=== PATIENT | male | born 1940 | race Caucasian/White ===

== ENCOUNTER 2017-01-16 13:59 | Day surgery (SDC) | payer MEDICARE ==
[2017-01-13 12:47] LABS: BASOPHILS # (AUTO) 0.1 X10'3 (0-0.2); BASOPHILS % (AUTO) 1.8 % (0-1); EOSINOPHILS # (AUTO) 0.2 X10'3 (0-0.9); EOSINOPHILS % (AUTO) 2.4 % (0-6); HEMATOCRIT 41.3 % (42.0-52.0); HEMOGLOBIN 14.4 g/dl (14.0-17.9); LYMPHOCYTES # (AUTO) 1.2 X10'3 (1.1-4.8); LYMPHOCYTES % (AUTO) 15.6 % (21-51); MEAN CORPUSCULAR HEMOGLOBIN 30.5 PG (27.0-31.0); MEAN CORPUSCULAR HGB CONC 34.9 % (33.0-36.5); MEAN CORPUSCULAR VOLUME 87.5 FL (78-98); MEAN PLATELET VOLUME 8.7 FL (7.4-10.4); MONOCYTES # (AUTO) 0.4 X10'3 (0-0.9); MONOCYTES % (AUTO) 5.4 % (2-12); NEUTROPHILS # (AUTO) 5.7 X10'3 (1.8-7.7); NEUTROPHILS % (AUTO) 74.8 % (42-75); PLATELET COUNT 203 X10'3 (140-440); RED BLOOD COUNT 4.72 X10'6 (4.70-6.10); RED CELL DISTRIBUTION WIDTH 12.7 % (11.5-14.5); WHITE BLOOD COUNT 7.6 X10'3 (4.5-11.0)
[2017-01-13 12:57] LABS: INR 1.3 INR; PARTIAL THROMBOPLASTIN TIME 29 SECONDS (22-32); PROTHROMBIN TIME 13.1 SECONDS (9.0-12.0)
[2017-01-13 13:00] LABS: ALBUMIN 3.6 G/DL (3.4-5.0); ANION GAP 4 (8-16); BLOOD UREA NITROGEN 22 MG/DL (7-18); BUN/CREATININE RATIO 15.9 (5.4-32.0); CHLORIDE 104 MMOL/L (99-107); CREATININE 1.38 MG/DL (0.60-1.10); GLUCOSE 123 MG/DL (70-104); POTASSIUM 4.5 MMOL/L (3.5-5.1); SODIUM 141 MMOL/L (135-145); TOTAL CARBON DIOXIDE 32.8 MMOL/L (24-32); eGFR 50 ML/MIN
[2017-01-16] VITALS (9 sets, daily range): BP systolic 114–129; BP diastolic 57–81
[~2017-01-16] VITALS: Ht 180.3 cm; Wt 100.4 kg
[~2017-01-16 13:59] MED LIST: ARIP2TAB11 PO; BUSP5TAB26 PO; CYAN100T12 PO; DABI150C PO; FLUV25TA3 PO; FOLI0.4T2 PO; FURO40TA4 PO; HYDR-3686 PO; IBUP-2264 PO; MIRT15TA8 PO; NITR0.4T SL; POTA8TAB3 PO; TRAZ-143 PO; VALS80TA26 PO
[2017-01-16] MEDS ORDERED: LORazepam 0.5 MG tablet PO PRN (14:25)
[2017-01-16] MEDS ORDERED: normal saline 1000ml 1,000 ML IV SCH (14:25)
[2017-01-16] MEDS ORDERED: diphenhydrAMINE 25mg capsule PO PRN (14:25)
[2017-01-16] MEDS ORDERED: BUSP5TAB3 PO (15:05)
[2017-01-16] MEDS ORDERED: MIRT15TA PO (15:05)
[2017-01-16] MEDS ORDERED: VALS80TA2 PO (15:05)
[2017-01-16] MEDS ORDERED: ARIP5TAB4 PO (15:05)
[2017-01-16] MEDS ORDERED: FLUV50TA3 PO (15:05)
[2017-01-16] MEDS ORDERED: TRAZ-143 PO (15:05)
[2017-01-16] MEDS ORDERED: POTA10TA36 PO (15:05)
[2017-01-16] MEDS ORDERED: FLUO20CA39 PO (15:05)
[2017-01-16] MEDS ORDERED: iohexol 350MG/ML 100ml bottle IV ONE (16:08)
[2017-01-16] MEDS ORDERED: LIDOcaine 1%/PF (10mg/ml) 5ml vial ONE (16:08)
[2017-01-16] MEDS ORDERED: midazolam 2 mg/2 ml injection ONE (16:33)
[2017-01-16] MEDS ORDERED: fentaNYL/PF 50MCG/1 ML 2ML syringe ONE (16:33)
[2017-01-16] MEDS ORDERED: HYDROcodone/acetaminophen 5mg/325mg tablet PO PRN (18:35)
[2017-01-16] MEDS ORDERED: proCHLORperazine 10 MG/2 ml inj IV PRN (18:35)
[2017-01-16] MEDS ORDERED: HYDROcodone/acetaminophen 10/325mg tab PO PRN (18:35)
[2017-01-16] MEDS ORDERED: OXAZEpam 15mg capsule PO PRN (18:35)
[2017-01-16] MEDS ORDERED: ondansetron/PF 4mg/2ml inj IV PRN (18:35)
== END 2017-01-16 20:32 | disposition home or self-care (01) ==
LOC: SSTAY O 13:59
PROVIDERS: ATTEND Internal Medicine Interventional Cardiology
DX: I25.10 Atherosclerotic heart disease of native coronary artery without angina pectoris (principal); I48.2 Chronic atrial fibrillation; E78.4 Other hyperlipidemia; I08.0 Rheumatic disorders of both mitral and aortic valves; N18.9 Chronic kidney disease, unspecified; I50.43 Acute on chronic combined systolic (congestive) and diastolic (congestive) heart failure; Z95.5 Presence of coronary angioplasty implant and graft; Z88.2 Allergy status to sulfonamides; Z95.1 Presence of aortocoronary bypass graft; Z79.899 Other long term (current) drug therapy; Z79.01 Long term (current) use of anticoagulants
CPT/HCPCS: 36415; 80048; 85025; 85610; 85730; 93312; 93325; 93461; 99152; 99153; A6257; C1760; C1769; C1894; J2001; J2250; J7030; Q0163; Q9967; A4620; J3010

== ENCOUNTER 2017-10-10 11:28 | Emergency (ER) | payer MEDICARE ==
[~2017-10-10] VITALS: Ht 180.3 cm; Wt 91.0 kg
[~2017-10-10 11:28] MED LIST changes: -ARIP2TAB11 PO; +ARIP5TAB4 PO; -BUSP5TAB26 PO; +BUSP5TAB3 PO; -CYAN100T12 PO; +FLUO20CA39 PO; -FLUV25TA3 PO; +FLUV50TA3 PO; -FOLI0.4T2 PO; -HYDR-3686 PO; -IBUP-2264 PO; +MIRT15TA PO; -MIRT15TA8 PO; -NITR0.4T SL; +POTA10TA36 PO; -POTA8TAB3 PO; -TRAZ-143 PO; +TRAZ-218 PO; +VALS80TA2 PO; -VALS80TA26 PO
[2017-10-10] MEDS ORDERED: LORazepam 1 MG tablet PO ONE ×2 (12:20→14:25)
[2017-10-10 12:29] LABS: BASOPHILS % (AUTO) 0.2 % (0-1); EOSINOPHILS # (AUTO) 0.1 X10'3 (0-0.9); EOSINOPHILS % (AUTO) 1.4 % (0-6); HEMATOCRIT 40.8 % (42.0-52.0); LYMPHOCYTES # (AUTO) 0.8 X10'3 (1.1-4.8); LYMPHOCYTES % (AUTO) 8.2 % (21-51); MEAN CORPUSCULAR HEMOGLOBIN 30.5 PG (27.0-31.0); MEAN CORPUSCULAR HGB CONC 34.4 % (33.0-36.5); MEAN CORPUSCULAR VOLUME 88.7 FL (78-98); MEAN PLATELET VOLUME 8.3 FL (7.4-10.4); MONOCYTES # (AUTO) 0.5 X10'3 (0-0.9); MONOCYTES % (AUTO) 5.3 % (2-12); NEUTROPHILS # (AUTO) 7.9 X10'3 (1.8-7.7); NEUTROPHILS % (AUTO) 84.9 % (42-75); PLATELET COUNT 223 X10'3 (140-440); RED BLOOD COUNT 4.59 X10'6 (4.70-6.10); RED CELL DISTRIBUTION WIDTH 14.9 % (11.5-14.5); WHITE BLOOD COUNT 9.3 X10'3 (4.5-11.0)
[2017-10-10 12:41] LABS: CLARITY,URINE CLOUDY (Clear); COLOR,URINE YELLOW (Yellow); GLUCOSE, URINE NEGATIVE (Neg); KETONES,URINE NEGATIVE (Neg); LEUKOCYTE ESTERASE ,URINE NEGATIVE (Neg); NITRITES, URINE NEGATIVE (Neg); OCCULT BLOOD,URINE NEGATIVE (Neg); PROTEIN,URINE NEGATIVE (Neg)
[2017-10-10 12:42] LABS: ALANINE AMINOTRANSFERASE 22 U/L (12-78); ALBUMIN 3.4 G/DL (3.4-5.0); ALBUMIN/GLOBULIN RATIO 0.8 (1.1-1.5); ALKALINE PHOSPHATASE 101 IU/L (46-116); ANION GAP 5 (8-16); ASPARTATE AMINO TRANSFERASE 11 U/L (10-37); BILIRUBIN,TOTAL 1.5 MG/DL (0.1-1.0); BLOOD UREA NITROGEN 13 MG/DL (7-18); BUN/CREATININE RATIO 10.8 (5.4-32.0); CALCIUM 9.4 MG/DL (8.5-10.1); CHLORIDE 103 MMOL/L (99-107); GLUCOSE 120 MG/DL (70-104); POTASSIUM 4.7 MMOL/L (3.5-5.1); SODIUM 138 MMOL/L (135-145); TOTAL CARBON DIOXIDE 29.8 MMOL/L (24-32); TOTAL PROTEIN 7.7 G/DL (6.4-8.2); eGFR 59 ML/MIN
[2017-10-10 12:47] LABS: UA COLLECTION TYPE CLN CATCH MIDSTREAM
[2017-10-10 12:52] LABS: ETHANOL < 0.010 GM/DL (0.0-0.010)
[2017-10-10 12:55] LABS: URINE AMPHETAMINE SCREEN NEGATIVE (Neg); URINE BARBITUATE SCREEN NEGATIVE (Neg); URINE BENZODIAZEPINES SCREEN NEGATIVE (Neg); URINE CANNABINOID SCREEN NEGATIVE (Neg); URINE COCAINE SCREEN NEGATIVE (Neg); URINE METHADONE SCREEN NEGATIVE (Neg); URINE OPIATE SCREEN NEGATIVE (Neg); URINE PHENCYCLIDINE SCREEN NEGATIVE (Neg)
[2017-10-10 13:01] LABS: RBC,URINE NONE SEEN /HPF (0-2); WBC,URINE 0-4 /HPF (0-4)
[2017-10-10 13:02] LABS: AMORPHOUS PHOSPHATES 4+; BACTERIA,URINE NONE SEEN /HPF (Neg); MUCUS STRANDS MODERATE /LPF (Neg); SQUAMOUS EPITHELIAL CELL,UR FEW /LPF (FEW)
[2017-10-10 14:32] VITALS: BP 125/77
== END 2017-10-10 14:36 ==
LOC: ER 11:29
DX: F32.9 Major depressive disorder, single episode, unspecified (principal); I48.91 Unspecified atrial fibrillation; I25.10 Atherosclerotic heart disease of native coronary artery without angina pectoris; I10 Essential (primary) hypertension; Z95.0 Presence of cardiac pacemaker; Z95.1 Presence of aortocoronary bypass graft; Z88.2 Allergy status to sulfonamides; Z88.8 Allergy status to other drugs, medicaments and biological substances
CPT/HCPCS: 36415; 70450; 80053; 80305; 80320; 81001; 84443; 85025; 99285

== ENCOUNTER 2017-10-10 14:15 | Inpatient (IN) | payer MEDICARE ==
[~2017-10-10] VITALS: Ht 180.3 cm; Wt 90.6 kg
[2017-10-10] MEDS ORDERED: acetaminophen 325mg tablet PO PRN ×2 (15:25)
[2017-10-10] MEDS ORDERED: magnesium hydroxide 30ml (MOM) UD suspension PO PRN (15:25)
[2017-10-10] MEDS ORDERED: mag hydrox/Alum hydrox/simeth 30ml oral suspension PO PRN (15:25)
[2017-10-10] MEDS ORDERED: hydrOXYzine 25 MG tablet PO PRN (16:35)
[2017-10-10 16:40] VITALS: BP 122/74
[2017-10-10 19:38] VITALS: BP 100/63
[2017-10-10] MEDS: fluvoxamine 25 MG tablet PO SCH (20:33)
[2017-10-10] MEDS: busPIRone 15mg tablet PO SCH (20:34)
[2017-10-10] MEDS: lithium carbonate 150mg capsule PO SCH (20:34)
[2017-10-10] MEDS: dabigatran 150mg capsule PO SCH (20:34)
[2017-10-10] MEDS ORDERED: traZODone 50mg tablet PO SCH (21:00)
[2017-10-11 07:24] LABS: CHOLESTEROL 139 MG/DL (0-200); HDL CHOLESTEROL 47 MG/DL (35-60); LDL CHOLESTEROL 87 MG/DL (50-100); TRIGLYCERIDES 40 MG/DL (20-135)
[2017-10-11] MEDS ORDERED: losartan 50mg tablet PO SCH (08:00)
[2017-10-11] MEDS ORDERED: PARoxetine 10mg tablet PO SCH (08:00)
[2017-10-11] MEDS ORDERED: furosemide 40mg tablet PO SCH (08:00)
[2017-10-11] MEDS ORDERED: potassium Cl 20 mEq SR tablet PO SCH (08:00)
[2017-10-11] MEDS ORDERED: aripiprazole 5mg tablet PO SCH (08:00)
[2017-10-11] MEDS: fluvoxamine 25 MG tablet PO SCH (08:18)
[2017-10-11] MEDS: busPIRone 15mg tablet PO SCH (08:19)
[2017-10-11] MEDS: dabigatran 150mg capsule PO SCH (08:19)
[2017-10-11] MEDS: lithium carbonate 150mg capsule PO SCH (08:20)
[2017-10-11 08:52] VITALS: BP 112/69
== END 2017-10-11 11:10 | disposition left against medical advice (07) | DRG 880 ==
LOC: ADULT MH 14:15
PROVIDERS: ADMIT Psychiatry & Neurology Psychiatry; ATTEND Psychiatry & Neurology Psychiatry
DX: F41.9 Anxiety disorder, unspecified (principal); F32.9 Major depressive disorder, single episode, unspecified; Z88.8 Allergy status to other drugs, medicaments and biological substances; Z88.2 Allergy status to sulfonamides
CPT/HCPCS: 36415; 80061; 83036; Q0177

== ENCOUNTER 2020-06-13 19:08 | Emergency (ER) | payer MEDICARE, SELFPAY ==
[~2020-06-13] VITALS: Ht 177.8 cm; Wt 88.3 kg
[~2020-06-13 19:08] MED LIST changes: -ARIP5TAB4 PO; -BUSP5TAB3 PO; +DULO-31 PO; -FLUO20CA39 PO; +FURO-149 PO; -FURO40TA4 PO; -MIRT15TA PO; -POTA10TA36 PO; -TRAZ-218 PO; +TRAZ-251 PO; -VALS80TA2 PO
--- NOTE | 2020-06-13 21:00 | NUR ---
The patient is a 79 year old male who was brought in by his for a mental health evaluation. THe patient is irritable. He reportedly has had high anxiety and will not allow his to leave the home without her. He is also stating to her "I don't want to " He reportedly has been having intrusive thoughts that he should kill himself and believes those thoughts are coming from the devil and is frequently asking his to pray for him. He denies that he wants to and he never has had a suicide attempt. He is alert and oriented. He denies that he is having A/V hallucinations.
[2020-06-13 21:13] LABS: BASOPHILS # (AUTO) 0.1 X10'3 (0-0.2); BASOPHILS % (AUTO) 0.9 % (0-1); EOSINOPHILS # (AUTO) 0.1 X10'3 (0-0.9); EOSINOPHILS % (AUTO) 1.3 % (0-6); HEMATOCRIT 39.6 % (42.0-52.0); HEMOGLOBIN 13.8 g/dl (14.0-17.9); LYMPHOCYTES # (AUTO) 0.9 X10'3 (1.1-4.8); MEAN CORPUSCULAR HEMOGLOBIN 32.6 PG (27.0-31.0); MEAN CORPUSCULAR HGB CONC 34.8 g/dL (33.0-36.5); MEAN CORPUSCULAR VOLUME 93.5 FL (78-98); MEAN PLATELET VOLUME 9.2 FL (7.4-10.4); MONOCYTES # (AUTO) 0.6 X10'3 (0-0.9); MONOCYTES % (AUTO) 7.2 % (2-12); NEUTROPHILS # (AUTO) 7.1 X10'3 (1.8-7.7); NEUTROPHILS % (AUTO) 80.6 % (42-75); PLATELET COUNT 176 X10'3 (140-440); RED BLOOD COUNT 4.24 X10'6 (4.70-6.10); RED CELL DISTRIBUTION WIDTH 14.6 % (11.5-14.5); WHITE BLOOD COUNT 8.8 X10'3 (4.5-11.0)
[2020-06-13 21:36] LABS: ALANINE AMINOTRANSFERASE 18 U/L (12-78); ALBUMIN 3.7 G/DL (3.4-5.0); ALBUMIN/GLOBULIN RATIO 1.1 (1.1-1.5); ALKALINE PHOSPHATASE 65 IU/L (46-116); ANION GAP 10 (8-16); ASPARTATE AMINO TRANSFERASE 15 U/L (10-37); BLOOD UREA NITROGEN 14 MG/DL (7-18); BUN/CREATININE RATIO 15.1 (5.4-32.0); CALCIUM 8.9 MG/DL (8.5-10.1); CHLORIDE 102 MMOL/L (99-107); CREATININE 0.93 MG/DL (0.60-1.10); ETHANOL < 0.010 GM/DL (0.0-0.010); GLUCOSE 108 MG/DL (70-104); POTASSIUM 4.4 MMOL/L (3.5-5.1); SODIUM 137 MMOL/L (135-145); TOTAL CARBON DIOXIDE 25.2 MMOL/L (24-32); TOTAL PROTEIN 7.2 G/DL (6.4-8.2); eGFR 79 ML/MIN
[2020-06-13 21:39] LABS: ACETAMINOPHEN < 2.0 UG/ML (10-30)
[2020-06-13] MEDS ORDERED: SACU1TAB PO (21:57)
[2020-06-13] MEDS ORDERED: SPIR25TA5 PO (21:57)
[2020-06-13] MEDS ORDERED: FURO40TA4 PO ×2 (21:57)
[2020-06-13] MEDS ORDERED: BUSP5TAB3 PO (21:57)
[2020-06-13] MEDS ORDERED: TRAZ-256 PO (21:57)
[2020-06-13] MEDS ORDERED: METO25TA6 (21:57)
[2020-06-13] MEDS ORDERED: POTA10TA19 PO (21:57)
[2020-06-13] MEDS ORDERED: LOSA25TA96 PO (21:57)
[2020-06-13] MEDS ORDERED: METO-395 PO (22:04)
[2020-06-13] MEDS ORDERED: DIGO125T PO (22:04)
[2020-06-13] MEDS ORDERED: [UNRECOGNIZED DRUG - OTHER] PO (22:08)
[2020-06-13 22:15] LABS: URINE AMPHETAMINE SCREEN NEGATIVE (Neg); URINE BARBITUATE SCREEN NEGATIVE (Neg); URINE BENZODIAZEPINES SCREEN NEGATIVE (Neg); URINE CANNABINOID SCREEN NEGATIVE (Neg); URINE COCAINE SCREEN NEGATIVE (Neg); URINE METHADONE SCREEN NEGATIVE (Neg); URINE OPIATE SCREEN NEGATIVE (Neg); URINE PHENCYCLIDINE SCREEN NEGATIVE (Neg)
[2020-06-13] MEDS ORDERED: METO-411 PO (22:27)
[2020-06-13] MEDS ORDERED: FLUV25TA3 PO (22:34)
--- NOTE | 2020-06-13 22:57 | NUR ---
The patient is up to the bathroom asking if every thing was Okay and was reassured that it was.
--- NOTE | 2020-06-13 22:58 | NUR ---
, [place] [facility] lewyy=[phone] and cell kmtvg=[phone]
[2020-06-14] MEDS ORDERED: traZODone 50mg tablet PO SCH (00:15)
--- NOTE | 2020-06-14 00:32 | NUR ---
The patient appears to have been sleeping. He approached the nursing station and complained of not being able to sleep and requested sleep med and trazodone given.
--- NOTE | 2020-06-14 02:08 | NUR ---
The patient appears to be sleeping
--- NOTE | 2020-06-14 03:57 | NUR ---
The patient appears to be sleeping
--- NOTE | 2020-06-14 05:20 | NUR ---
packet sent to [facility]
[2020-06-14 05:31] VITALS: BP_DIAS 75
--- NOTE | 2020-06-14 06:00 | NUR ---
The patient has slept poorly during the night with frequent awakenings. He is now complaining of high anxiety and having the thoughts that brought him in. MD made aware of high anxiety.
[2020-06-14] MEDS ORDERED: LORazepam 0.5 MG tablet PO ONE (06:05)
--- NOTE | 2020-06-14 06:54 | NUR ---
Patient resting on left side with eyes closed.
[2020-06-14] MEDS ORDERED: hydrOXYzine 25 MG tablet PO ONE (07:30)
--- NOTE | 2020-06-14 07:30 | NUR ---
Pt c/o still having obsessive thoughts and unable to rest. Having dreams of suicide, states the ativan "did nothing". Discussed with Dr Herron and rec order for Atarax.
[2020-06-14 07:50] VITALS: BP_SYST 135
[2020-06-14] MEDS ORDERED: losartan 25mg tablet PO SCH (08:00)
[2020-06-14] MEDS ORDERED: busPIRone 5mg tablet PO SCH (08:00)
[2020-06-14] MEDS ORDERED: fluvoxamine 25 MG tablet PO SCH (08:00)
[2020-06-14] MEDS ORDERED: digoxin 250mcg (0.25mg) tablet PO SCH (08:00)
[2020-06-14] MEDS ORDERED: potassium Cl 20 mEq SR tablet PO SCH (08:00)
[2020-06-14] MEDS ORDERED: furosemide 40mg tablet PO SCH (08:00)
[2020-06-14] MEDS ORDERED: metoprolol succinate 25mg (24-HOUR) SR. Tablet PO SCH (08:00)
[2020-06-14] MEDS ORDERED: spironolactone 25 MG tablet PO SCH (08:00)
[2020-06-14] MEDS ORDERED: sacubitril/valsartan 24mg-26mg tablet PO SCH (08:00)
--- NOTE | 2020-06-14 08:08 | NUR ---
PT ON PHONE WITH FAMILY, FAMILY ASKS "IS ANYONE THERE PRAYING FOR YOU?". BRITANY PATEL CONTACTED AND EN ROUTE TO SEE PT.
--- NOTE | 2020-06-14 08:35 | NUR ---
On phone with , asked her to come in and see him and help him. Communication Coordinator arrived to talk with patient.
--- NOTE | 2020-06-14 10:29 | NUR ---
Patient being evaluated by Stanley from [facility]
== END 2020-06-14 11:45 | disposition home or self-care (01) ==
LOC: ER 19:09
DX: R45.851 Suicidal ideations (principal); F41.9 Anxiety disorder, unspecified; I48.91 Unspecified atrial fibrillation; I25.10 Atherosclerotic heart disease of native coronary artery without angina pectoris; I10 Essential (primary) hypertension; G47.30 Sleep apnea, unspecified; Z95.1 Presence of aortocoronary bypass graft; Z95.0 Presence of cardiac pacemaker; Z88.8 Allergy status to other drugs, medicaments and biological substances; Z88.2 Allergy status to sulfonamides; Z79.899 Other long term (current) drug therapy
CPT/HCPCS: 36415; 80053; 80305; 80320; 80329; 85025; 99285; Q0177

== ENCOUNTER 2021-10-02 17:08 | Inpatient (IN) | payer MEDICARE ==
[~2021-10-02] VITALS: Ht 182.9 cm; Wt 88.7 kg
[~2021-10-02 17:08] MED LIST changes: +BUSP5TAB3 PO; -DABI150C PO; +DIGO125T PO; -DULO-31 PO; +FLUV25TA14 PO; -FLUV50TA3 PO; -FURO-149 PO; +FURO40TA4 PO; +LOSA25TA96 PO; +METO-411 PO; +POTA-192 PO; +SACU1TAB PO; +SPIR25TA5 PO; -TRAZ-251 PO; +TRAZ-256 PO
--- NOTE | 2021-10-02 17:18 | NUR ---
EKG 1713 LM
[2021-10-02 17:55] LABS: BASOPHILS # (AUTO) 0.1 X10'3 (0-0.2); BASOPHILS % (AUTO) 0.6 % (0-1); EOSINOPHILS % (AUTO) 0.2 % (0-6); HEMATOCRIT 38.7 % (42.0-52.0); HEMOGLOBIN 13.6 g/dl (14.0-17.9); LYMPHOCYTES # (AUTO) 0.7 X10'3 (1.1-4.8); LYMPHOCYTES % (AUTO) 7.4 % (21-51); MEAN CORPUSCULAR HEMOGLOBIN 33.1 PG (27.0-31.0); MEAN CORPUSCULAR HGB CONC 35.3 g/dL (33.0-36.5); MEAN CORPUSCULAR VOLUME 93.8 FL (78-98); MONOCYTES # (AUTO) 0.8 X10'3 (0-0.9); MONOCYTES % (AUTO) 7.9 % (2-12); NEUTROPHILS % (AUTO) 83.9 % (42-75); PLATELET COUNT 167 X10'3 (140-440); RED BLOOD COUNT 4.12 X10'6 (4.70-6.10); RED CELL DISTRIBUTION WIDTH 13.5 % (11.5-14.5); WHITE BLOOD COUNT 9.6 X10'3 (4.5-11.0)
[2021-10-02 17:56] LABS: ALANINE AMINOTRANSFERASE 16 U/L (12-78); ALBUMIN 3.5 G/DL (3.4-5.0); ALBUMIN/GLOBULIN RATIO 0.8 (1.1-1.5); ALKALINE PHOSPHATASE 73 IU/L (46-116); ANION GAP 10 (8-16); ASPARTATE AMINO TRANSFERASE 22 U/L (10-37); BILIRUBIN,TOTAL 2.4 MG/DL (0.1-1.0); BLOOD UREA NITROGEN 17 MG/DL (7-18); CALCIUM 9.3 MG/DL (8.5-10.1); CHLORIDE 104 MMOL/L (99-107); CREATININE 1.42 MG/DL (0.60-1.10); GLUCOSE 133 MG/DL (70-104); POTASSIUM 5.1 MMOL/L (3.5-5.1); SODIUM 139 MMOL/L (135-145); TOTAL CARBON DIOXIDE 25.3 MMOL/L (24-32); eGFR 48 ML/MIN
[2021-10-02] MEDS ORDERED: aspirin 81mg tab.chew PO ONE (18:30)
[2021-10-02] MEDS ORDERED: nitroGLYCERIN 0.4mg/hour patch TD ONE (18:30)
[2021-10-02] MEDS ORDERED: temazepam 15mg capsule PO PRN (21:00)
[2021-10-02] MEDS ORDERED: HYDROcodone/acetaminophen 5mg/325mg tablet PO PRN (21:20)
[2021-10-02] MEDS ORDERED: ipratropium/albuterol 3ml nebule NEB PRN (21:20)
[2021-10-02] MEDS ORDERED: mag hydrox/Alum hydrox/simeth 30ml oral suspension PO PRN (21:20)
[2021-10-02] MEDS ORDERED: acetaminophen 650mg rectal suppository RC PRN (21:20)
[2021-10-02] MEDS ORDERED: diphenhydrAMINE 25mg capsule PO PRN (21:20)
[2021-10-02] MEDS ORDERED: magnesium hydroxide 30ml (MOM) UD suspension PO PRN (21:20)
[2021-10-02] MEDS ORDERED: morphine 2 MG/ML inj. syringe IV PRN ×2 (21:20)
[2021-10-02] MEDS ORDERED: ondansetron/PF 4mg/2ml inj IV PRN (21:20)
[2021-10-02] MEDS ORDERED: bisacodyl 10mg suppository rectal RC PRN (21:20)
[2021-10-02] MEDS ORDERED: acetaminophen 325mg tablet PO PRN ×2 (21:20)
[2021-10-02] MEDS ORDERED: diphenhydrAMINE 50 mg/ml inj IV PRN (21:20)
[2021-10-02] MEDS ORDERED: ondansetron 4mg rapidly disintigrating tab PO PRN (21:20)
[2021-10-02] MEDS ORDERED: normal saline 1000ml 1,000 ML IV SCH (21:20)
[2021-10-02 21:57] LABS: HEMOGLOBIN A1C 5.2 % (4.5-6.2)
[2021-10-02 22:05] LABS: APTT 34 SECONDS (22-32); D-DIMER 0.38 MG/L FEU (0-0.50)
[2021-10-02] MEDS ORDERED: traZODone 50mg tablet PO SCH (22:06)
[2021-10-03 00:01] LABS: CREATINE KINASE 83 U/L (39-308); LIPASE < 50 U/L (73-393); MAGNESIUM 2.1 MG/DL (1.5-2.4); PHOSPHORUS 2.9 MG/DL (2.3-4.5)
--- NOTE | 2021-10-03 00:58 | NUR ---
Patient in room ED 3. I have received report from Kelsie ED RN and had the opportunity to ask questions and assume patient care.
[2021-10-03 01:30] VITALS: BP 110/78
--- NOTE | 2021-10-03 01:39 | NUR ---
Pt arrived fr/the ED via gurney in no acute distress. Assisted to bed, oriented to room, surroundings, and POC. VSS.
[2021-10-03] MEDS ORDERED: EMPA10TA PO (01:53)
[2021-10-03] MEDS: heparin, porcine 5000 units/ml vial SQ SCH ×2 (02:00→07:07)
--- NOTE | 2021-10-03 06:44 | NUR ---
Patient in room PCU 3026. I have received report from REGINE Hope and had the opportunity to ask questions and assume patient care.
--- NOTE | 2021-10-03 07:00 | NUR ---
Problems reprioritized. Patient report given, questions answered & plan of care reviewed with Magdaleno WEINER.
[2021-10-03 07:14] VITALS: BP 113/74
[2021-10-03] MEDS ORDERED: pantoprazole 40mg Tablet.DR PO SCH (07:30)
[2021-10-03 07:31] LABS: ALANINE AMINOTRANSFERASE 14 U/L (12-78); ALBUMIN 3.1 G/DL (3.4-5.0); ALBUMIN/GLOBULIN RATIO 0.8 (1.1-1.5); ALKALINE PHOSPHATASE 61 IU/L (46-116); ANION GAP 15 (8-16); ASPARTATE AMINO TRANSFERASE 21 U/L (10-37); BILIRUBIN,TOTAL 1.9 MG/DL (0.1-1.0); BLOOD UREA NITROGEN 14 MG/DL (7-18); BUN/CREATININE RATIO 14.6 (5.4-32.0); CALCIUM 8.7 MG/DL (8.5-10.1); CHLORIDE 107 MMOL/L (99-107); CHOLESTEROL 134 MG/DL (0-200); CREATININE 0.96 MG/DL (0.60-1.10); GLUCOSE 109 MG/DL (70-104); HDL CHOLESTEROL 44 MG/DL (35-60); LDL CHOLESTEROL 82 MG/DL (50-100); POTASSIUM 3.6 MMOL/L (3.5-5.1); SODIUM 143 MMOL/L (135-145); TOTAL CARBON DIOXIDE 21.5 MMOL/L (24-32); TOTAL PROTEIN 6.8 G/DL (6.4-8.2); TRIGLYCERIDES 66 MG/DL (20-135); eGFR 76 ML/MIN
[2021-10-03 07:34] LABS: BASOPHILS % (AUTO) 0.6 % (0-1); EOSINOPHILS # (AUTO) 0.1 X10'3 (0-0.9); EOSINOPHILS % (AUTO) 0.9 % (0-6); HEMATOCRIT 35.8 % (42.0-52.0); HEMOGLOBIN 12.6 g/dl (14.0-17.9); LYMPHOCYTES # (AUTO) 0.7 X10'3 (1.1-4.8); LYMPHOCYTES % (AUTO) 9.7 % (21-51); MEAN CORPUSCULAR HEMOGLOBIN 32.9 PG (27.0-31.0); MEAN CORPUSCULAR HGB CONC 35.2 g/dL (33.0-36.5); MEAN CORPUSCULAR VOLUME 93.5 FL (78-98); MEAN PLATELET VOLUME 9.8 FL (7.4-10.4); MONOCYTES # (AUTO) 0.6 X10'3 (0-0.9); MONOCYTES % (AUTO) 7.6 % (2-12); NEUTROPHILS # (AUTO) 6.1 X10'3 (1.8-7.7); NEUTROPHILS % (AUTO) 81.2 % (42-75); PLATELET COUNT 145 X10'3 (140-440); RED BLOOD COUNT 3.83 X10'6 (4.70-6.10); RED CELL DISTRIBUTION WIDTH 13.3 % (11.5-14.5); WHITE BLOOD COUNT 7.5 X10'3 (4.5-11.0)
[2021-10-03] MEDS ORDERED: docusate sod 100mg capsule PO SCH (08:00)
[2021-10-03] MEDS ORDERED: furosemide 10 MG/1 ML 10ml inj IV SCH (08:00)
[2021-10-03] MEDS ORDERED: aspirin 81mg, enteric-coated 1 TAB TABLET.DR PO SCH (08:00)
--- NOTE | 2021-10-03 09:15 | NUR ---
mechanical service technician at bedside
[2021-10-03 11:02] VITALS: BP 107/69
[2021-10-03] MEDS ORDERED: FURO40TA4 PO (14:28)
--- NOTE | 2021-10-03 15:08 | NUR ---
Patient alert and oriented in no apparent acute distress. Patient denies any complaints at this time and his is at bedside. Discussed with patient and his discharge instructions and medication changes. Patient is hard of hearing and has x2 saurabh aids. Reinforced teaching and answered questions patient had. Patient and spouse verbalized understanding of teaching.
--- NOTE | 2021-10-03 15:20 | NUR ---
Patient discharged with all personal belongings escorted out in wheelchair accompanied by x1 staff and spouse.
== END 2021-10-03 15:25 | disposition home or self-care (01) | DRG 280 ==
LOC: ER 17:09 → ED HOLD 21:38 → PCU 3S 10-03 01:15
PROVIDERS: ADMIT Family Medicine; ATTEND Family Medicine
DX: I13.0 Hypertensive heart and chronic kidney disease with heart failure and stage 1 through stage 4 chronic kidney disease, or unspecified chronic kidney disease (principal); I21.A1 Myocardial infarction type 2; I50.23 Acute on chronic systolic (congestive) heart failure; N17.9 Acute kidney failure, unspecified; J96.10 Chronic respiratory failure, unspecified whether with hypoxia or hypercapnia; E78.00 Pure hypercholesterolemia, unspecified; G47.33 Obstructive sleep apnea (adult) (pediatric); R26.9 Unspecified abnormalities of gait and mobility; I25.10 Atherosclerotic heart disease of native coronary artery without angina pectoris; F41.9 Anxiety disorder, unspecified; J44.9 Chronic obstructive pulmonary disease, unspecified; I48.0 Paroxysmal atrial fibrillation; Z20.822 Contact with and (suspected) exposure to COVID-19; I27.20 Pulmonary hypertension, unspecified; K76.1 Chronic passive congestion of liver; N18.9 Chronic kidney disease, unspecified; Z85.118 Personal history of other malignant neoplasm of bronchus and lung; Z87.891 Personal history of nicotine dependence; Z91.19 Patient's noncompliance with other medical treatment and regimen; Z95.0 Presence of cardiac pacemaker; Z95.1 Presence of aortocoronary bypass graft; Z99.81 Dependence on supplemental oxygen; Z88.8 Allergy status to other drugs, medicaments and biological substances; Z88.2 Allergy status to sulfonamides; Z88.4 Allergy status to anesthetic agent; Z79.899 Other long term (current) drug therapy
CPT/HCPCS: 36415; 71045; 80053; 80061; 80162; 82550; 83036; 83690; 83735; 83880; 84100; 84484; 85025; 85379; 85610; 85730; 87081; 87635; 93005; 93306; 94760; 99285; C9803; G0378; J1644; J1940; J7030

== ENCOUNTER 2021-11-09 13:45 | Day surgery (SDC) | payer MEDICARE ==
[~2021-11-09] VITALS: Ht 182.9 cm; Wt 83.4 kg
[2021-11-09] VITALS (7 sets, daily range): BP systolic 69–97; BP diastolic 38–60
[~2021-11-09 13:45] MED LIST changes: +EMPA10TA PO; -LOSA25TA96 PO
[2021-11-09] MEDS ORDERED: LORazepam 0.5 MG tablet PO PRN (14:25)
[2021-11-09] MEDS ORDERED: normal saline 1,000 ML IV SCH (14:25)
[2021-11-09] MEDS ORDERED: METO200T49 PO (14:33)
[2021-11-09 14:46] LABS: BASOPHILS % (AUTO) 0.7 % (0-1); EOSINOPHILS # (AUTO) 0.1 X10'3 (0-0.9); EOSINOPHILS % (AUTO) 1.4 % (0-6); HEMATOCRIT 39.8 % (42.0-52.0); HEMOGLOBIN 13.7 g/dl (14.0-17.9); LYMPHOCYTES # (AUTO) 0.9 X10'3 (1.1-4.8); MEAN CORPUSCULAR HEMOGLOBIN 32.3 PG (27.0-31.0); MEAN CORPUSCULAR HGB CONC 34.5 g/dL (33.0-36.5); MEAN CORPUSCULAR VOLUME 93.4 FL (78-98); MEAN PLATELET VOLUME 8.3 FL (7.4-10.4); MONOCYTES # (AUTO) 0.5 X10'3 (0-0.9); MONOCYTES % (AUTO) 7.8 % (2-12); NEUTROPHILS # (AUTO) 4.7 X10'3 (1.8-7.7); NEUTROPHILS % (AUTO) 76.1 % (42-75); PLATELET COUNT 173 X10'3 (140-440); RED BLOOD COUNT 4.26 X10'6 (4.70-6.10); RED CELL DISTRIBUTION WIDTH 13.6 % (11.5-14.5); WHITE BLOOD COUNT 6.1 X10'3 (4.5-11.0)
[2021-11-09 14:53] LABS: ALBUMIN 3.3 G/DL (3.4-5.0); ANION GAP 6 (8-16); BLOOD UREA NITROGEN 39 MG/DL (7-18); BUN/CREATININE RATIO 23.9 (5.4-32.0); CALCIUM 8.8 MG/DL (8.5-10.1); CHLORIDE 99 MMOL/L (99-107); CREATININE 1.63 MG/DL (0.60-1.10); GLUCOSE 107 MG/DL (70-104); POTASSIUM 4.8 MMOL/L (3.5-5.1); SODIUM 132 MMOL/L (135-145); TOTAL CARBON DIOXIDE 27.5 MMOL/L (24-32); eGFR 41 ML/MIN
[2021-11-09 15:02] LABS: APTT 30 SECONDS (22-32)
[2021-11-09] MEDS ORDERED: FLUV50TA24 PO (15:07)
[2021-11-09] MEDS ORDERED: FURO20TA4 PO (15:07)
[2021-11-09] MEDS ORDERED: SACU1TAB4 (15:10)
[2021-11-09] MEDS ORDERED: fentaNYL/PF 50MCG/1 ML 2ML syringe ONE (15:13)
[2021-11-09] MEDS ORDERED: heparin 1,000 UNITS/NS 500ml 0 ML ONE (15:13)
[2021-11-09] MEDS ORDERED: midazolam 1 mg/ML 2ml injection ONE (15:13)
[2021-11-09] MEDS ORDERED: LIDOcaine 1% 30ml preserv. free vial ONE (15:13)
[2021-11-09] MEDS ORDERED: iohexol 350MG/ML 100ml bottle IV ONE (15:23)
[2021-11-09] MEDS ORDERED: heparin 1,000 UNITS/NS 500ml 500 ML ONE ×2 (15:29→16:23)
[2021-11-09] MEDS ORDERED: clopidogrel 75mg tablet ONE (16:44)
[2021-11-09] MEDS ORDERED: HYDROcodone/acetaminophen 10/325mg tab PO PRN (17:30)
[2021-11-09] MEDS ORDERED: HYDROcodone/acetaminophen 5mg/325mg tablet PO PRN (17:30)
[2021-11-10 06:09] LABS: ISTAT Hct MIX 39 %PCV (42-52); ISTAT O2 SATURATION MIX VENOUS 53 % (60-80); ISTAT SOURCE BLNK
== END 2021-11-09 19:00 | disposition short-term general hospital (02) ==
LOC: SSTAY O 13:45
PROVIDERS: ATTEND Student in an Organized Health Care Education/Training Program
DX: I50.22 Chronic systolic (congestive) heart failure (principal); I27.20 Pulmonary hypertension, unspecified; I50.9 Heart failure, unspecified; G47.33 Obstructive sleep apnea (adult) (pediatric); N18.9 Chronic kidney disease, unspecified; I13.0 Hypertensive heart and chronic kidney disease with heart failure and stage 1 through stage 4 chronic kidney disease, or unspecified chronic kidney disease; Z88.8 Allergy status to other drugs, medicaments and biological substances; Z98.890 Other specified postprocedural states; Z79.899 Other long term (current) drug therapy; Z88.2 Allergy status to sulfonamides
CPT/HCPCS: 33289; 36415; 80048; 82803; 82948; 85014; 85025; 85610; 85730; 93005; 99152; 99153; C1751; C1769; C2624; J1644; J2250; J3010; J3490; J7030; Q9967; 93451; A6258; A6402; C1894

== ENCOUNTER 2023-07-11 08:08 | Emergency (ER) | payer MEDICARE ==
[~2023-07-11] VITALS: Ht 180.3 cm; Wt 79.8 kg
[~2023-07-11 08:08] MED LIST changes: +ATOR10TA70 PO; -BUSP5TAB3 PO; -DIGO125T PO; -FLUV25TA14 PO; +FLUV50TA24 PO; +FURO20TA4 PO; -FURO40TA4 PO; +LEVE500T PO; +METO-395 PO; -METO-411 PO; -POTA-192 PO; +POTA-207 PO; -SACU1TAB PO; -SPIR25TA5 PO
[2023-07-11 08:23] VITALS: TEMP 97.8
[2023-07-11 08:43] LABS: EOSINOPHILS # (AUTO) 0.1 X10'3 (0-0.9); WHITE BLOOD COUNT 7.3 X10'3 (4.5-11.0)
[2023-07-11 08:45] LABS: BASOPHILS # (AUTO) 0.1 X10'3 (0-0.2); BASOPHILS % (AUTO) 0.8 % (0-1); HEMATOCRIT 33.7 % (42.0-52.0); HEMOGLOBIN 11.6 g/dl (14.0-17.9); LYMPHOCYTES # (AUTO) 0.5 X10'3 (1.1-4.8); MEAN CORPUSCULAR HEMOGLOBIN 32.2 PG (27.0-31.0); MEAN CORPUSCULAR HGB CONC 34.3 g/dL (33.0-36.5); MEAN CORPUSCULAR VOLUME 93.9 FL (78-98); MEAN PLATELET VOLUME 9.3 FL (7.4-10.4); MONOCYTES # (AUTO) 0.6 X10'3 (0-0.9); MONOCYTES % (AUTO) 8.1 % (2-12); NEUTROPHILS # (AUTO) 6.1 X10'3 (1.8-7.7); NEUTROPHILS % (AUTO) 83.1 % (42-75); PLATELET COUNT 129 X10'3 (140-440); RED BLOOD COUNT 3.59 X10'6 (4.70-6.10); RED CELL DISTRIBUTION WIDTH 14.2 % (11.5-14.5)
[2023-07-11 09:04] LABS: ALBUMIN 3.5 G/DL (3.4-5.0); ANION GAP 7 (8-16); BLOOD UREA NITROGEN 19 MG/DL (7-18); BUN/CREATININE RATIO 16.4 (10.0-20.0); CHLORIDE 106 MMOL/L (99-107); CREATININE 1.16 MG/DL (0.60-1.10); GLUCOSE 115 MG/DL (70-104); POTASSIUM 3.9 MMOL/L (3.5-5.1); PRO BRAIN NATRIURETIC PEPTIDE 13816 PG/ML (0-450); SODIUM 139 MMOL/L (135-145); TOTAL CARBON DIOXIDE 25.7 MMOL/L (24-32); eCRCL 54 ML/MIN; eGFR 61 ML/MIN
[2023-07-11] MEDS: furosemide 10 MG/1 ML 10ml inj IV ONE (09:47)
[2023-07-11] MEDS ORDERED: iohexol 350MG/ML 100ml bottle IV ONE (12:27)
[2023-07-11 14:47] VITALS: BP 117/76; PULSE 77; RESP 18; O2SAT 96
== END 2023-07-11 14:56 | disposition home or self-care (01) ==
LOC: ER 08:09
DX: I11.0 Hypertensive heart disease with heart failure (principal); I50.9 Heart failure, unspecified; Z88.8 Allergy status to other drugs, medicaments and biological substances; Z88.4 Allergy status to anesthetic agent; Z88.2 Allergy status to sulfonamides; I48.91 Unspecified atrial fibrillation; I25.10 Atherosclerotic heart disease of native coronary artery without angina pectoris; E78.00 Pure hypercholesterolemia, unspecified; G47.30 Sleep apnea, unspecified; F41.9 Anxiety disorder, unspecified; Z95.1 Presence of aortocoronary bypass graft; Z85.9 Personal history of malignant neoplasm, unspecified
CPT/HCPCS: 36415; 71045; 71275; 80048; 83880; 84484; 85025; 93005; 96374; 99285; J1940; J3490; Q9967; A6449

== ENCOUNTER 2024-07-27 12:04 | Emergency (ER) | payer MEDICARE ==
[~2024-07-27] VITALS: Ht 182.9 cm; Wt 79.2 kg
[~2024-07-27 12:04] MED LIST changes: +FLUV50TA10 PO; -FLUV50TA24 PO
[2024-07-27 12:06] VITALS: PULSE 63; RESP 18; TEMP 97.5; O2SAT 98
--- NOTE | 2024-07-27 12:51 | Physician Documentation ---
History of Present Illness ~ Chief Complaint: See Chief Complaint Stated Complaint: BOWEL ISSUES Time Seen by MD: 12:32 Primary Medical Doctor: Dr. Jania Pickens is PMD, Dr. Valverde is culinary artist, Dr. Bernal is psych MD Source: patient, family Mode of Arrival: POV Exam Limitations: clinical condition HPI 83-year-old male with dementia brought in by and daughter due to concern that patient is only consuming ensure drinks and that his stool looked abnormal this morning in his depends. Family brought the stool with them to the ER in a plastic bag. Patient has not had any episodes of nausea or vomiting or complaint of any abdominal pain. is concerned with how dry the stool is. Medication Reconciliation Allergies: Coded Allergies: JESSICA Inhibitors (Unverified Allergy, Unknown, 07/27/24) Sulfa (Sulfonamide Antibiotics) (Verified Allergy, Unknown, 07/27/24) Uncoded Allergies: ANESTHETICS (Allergy, Unknown, 01/16/17) Scheduled Atorvastatin Calcium (Atorvastatin Calcium), 1 TAB PO DAILY, (Reported) Empagliflozin (Jardiance), 1 TAB PO DAILY, (Reported) Fluvoxamine Maleate (Fluvoxamine Maleate), 2 TAB PO HS, (Reported) Furosemide (Furosemide), 1 TAB PO BID Levetiracetam (Levetiracetam), 1 TAB PO BID, (Reported) Metoprolol Succinate (Metoprolol Succinate), 25 MG PO DAILY Potassium Chloride* (K-Dur*), 1 TAB PO DAILY Trazodone HCl (Trazodone HCl), 1 TAB PO HS, (Reported) Past Medical History Past Medical History: Atrial Fibrillation, Coronary Artery Disease, Congestive Heart Failure, High Cholesterol, Hypertension, Sleep Apnea, Anxiety Past Surgical History: coronary bypass surgery, pacemaker Patient History: (Cancer) Malignant carcinoid tumor FATHER, , Age: 74, Cause: Lymphoma (65) MOTHER, , Age: 81, Cause: Leukemia (72) Hari's granulomatosis MOTHER, , Age: 81, Cause: Leukemia Alcohol Use: None Drug Use: none Lives with: Family Lives In: Home Review of Systems All Other Systems at this time: Reviewed and Negative Physical Exam Vital Signs: Temperature: 97.5, Source: Temporal, Heart Rate: 63, Respiratory Rate: 18, Pulse Oximetry: 98, Weight: 79.200 General Appearance General Appearance: Alert, WD/WN. NAD. HEENT: NCAT, PERRL, EOMI. Neck: Supple, trachea midline. Cardiovascular: RRR. No m/r/g. Lungs: CTAB. Breathing unlabored Extremities: Normal inspection. No edema. Skin: Warm/dry, normal color Neurological: Alert and oriented to person and place, normal gait. Psychiatric: Affect congruent with mood. Progress Results/Orders Results/Orders Vital Signs 07/27/24 12:06 Temp 97.5 Pulse 63 Resp 18 Pulse Ox 98 Medical Decision Making Additional Information Malnutrition, social economic factors, home safety concerns Departure Time of Disposition: 12:48 Disposition: 01 HOME / SELF CARE / HOMELESS Impression: Primary Impression: Dementia Qualified Codes: F03.B0 - Unspecified dementia, moderate, without behavioral disturbance, psychotic disturbance, mood disturbance, and anxiety Additional Impression: Food aversion Condition: Stable Discharge Instructions: Dementia Caregiver Guide Additional Instructions: YOUR QUESTION WAS NEXT STEPS WITH HOW TO MOVE HIM INTO A MEMORY CARE FACILITY: NEXT STEP WOULD BE TO FIND A FACILITY THAT YOU THINK HE WOULD BE A GOOD FIT FOR AND THAT FITS YOUR BUDGET AND THEN GET AN APPOINTMENT WITH YOUR PCP WHO WOULD COMPLETE THE PAPERWORK FOR THE FACILITY FOR PATIENT TO MOVE IN AT AT THE APPOINTMENT. IF THERE IS NOT A FACILITY IN YOUR BUDGET, YOU CAN SEE IF YOU CAN GET QUALIFIED FOR MEDICAL SINCE MEDICAL WILL COVER MEMORY CARE. Referrals: NO PRIMARY CARE PROVIDER (PCP) Education Educated: Patient Educated regarding: diagnosis, treatment, need for follow up Signature Scribe Signature: X Attestation: ORION NUNES Jul 27, 2024 12:51
== END 2024-07-27 13:10 | disposition home or self-care (01) ==
LOC: ER 12:05
DX: R63.39 Other feeding difficulties (principal); F03.90 Unspecified dementia, unspecified severity, without behavioral disturbance, psychotic disturbance, mood disturbance, and anxiety; E78.00 Pure hypercholesterolemia, unspecified; G47.30 Sleep apnea, unspecified; I11.0 Hypertensive heart disease with heart failure; I25.10 Atherosclerotic heart disease of native coronary artery without angina pectoris; I48.91 Unspecified atrial fibrillation; I50.9 Heart failure, unspecified; Z88.2 Allergy status to sulfonamides; Z88.8 Allergy status to other drugs, medicaments and biological substances; Z95.0 Presence of cardiac pacemaker; Z95.1 Presence of aortocoronary bypass graft; F41.9 Anxiety disorder, unspecified
CPT/HCPCS: 99281; 99282